=== PATIENT | male | born 1960 | race Caucasian/White ===

== ENCOUNTER 2017-04-05 23:18 | Emergency (ER) | payer OTHER ==
--- NOTE | ~2017-04-05 | CR72 ---
[facility] A Service of [facility] & [facility] RADIOLOGY TEXT RESULTS PATIENT: ANSELMO BULLOCK LOCATION: [facility] : 60 UNIT #: [id number] AGE: [address]: Arvind Smith MD SEX: M ORDER DR: [id number] [facility] [address] [place], [place] [address] [id number] E MR#: [id number] Acc #: [id number] NAME: ANSELMO BULLOCK. : 1960 SEX: M STUDY DATE/TIME: 04/06/2017 0:03 UNIT: [facility] ROOM: STUDY DESCRIPTION: CR Chest Single View Portable Attending Physician: Arvind Smith M.D. Ordering Physician: Arvind Smith M.D. Primary Care Physician: [facility]. MEDICAL IMAGING REPORT This report is preliminary unless electronic signature is present EXAM Portable chest INDICATION Cough and shortness of air today. PROCEDURE Frontal view chest COMPARISON 01/06/2015 FINDINGS Heart size is normal. No dense consolidation, pleural fluid or pneumothorax. IMPRESSION No active process. Dictated by... Jose Meza M.D. THIS IS AN ELECTRONICALLY VERIFIED REPORT Jose Meza M.D. at 04/06/2017 10:08 PM Nahum TD: 04/06/2017 09:51 JOB #: [id number] MEDICAL IMAGING REPORT Page 1 of 1 COPY
[~2017-04-05 23:18] MED LIST: AUGMENTIN875 MG PO; COMBIVENT INH14.7 GM INH; FAMOTIDINE PO; KEFLEX250 M1 PO; LEVAQUIN PO; NICOTINE T1 PATCH .2 TOP; PREDNISONE PO; ROBITUSSIN-DM120 ML PO; VICODIN 5/1 TAB 5/50 PO
== END 2017-04-06 00:45 | disposition home or self-care (01) ==
LOC: CED 23:18
DX: J44.1 Chronic obstructive pulmonary disease with (acute) exacerbation (principal); F10.129 Alcohol abuse with intoxication, unspecified; F17.200 Nicotine dependence, unspecified, uncomplicated; Z79.899 Other long term (current) drug therapy
CPT/HCPCS: 71010; 94640; 99283